=== PATIENT | male | born 1965 | race American Indian/Alaskan Native ===

== ENCOUNTER 2020-08-02 06:38 | Day surgery (SDC) | payer OTHER ==
[2020-08-02] MEDS ORDERED: Sodium Chloride 0.9% 1,000 ML IV SCH (07:00)
[2020-08-02] MEDS ORDERED: Midazolam 1 MG/ML 2 ML SDV ONE (07:22)
[2020-08-02] MEDS ORDERED: fentaNYL 100 MCG/2 ML SDV ONE (07:22)
[2020-08-02] MEDS ORDERED: Propofol 200 MG/20 ML SDV ONE (07:22)
--- NOTE | 2020-08-02 14:10 | OR ---
DATE OF PROCEDURE: 08/02/2020 SURGEON: Abdias Rehman MD PROCEDURE: Colonoscopy. FINDINGS: Mild diverticulosis without evidence of diverticulitis. COMPLICATIONS: None. ASSISTED LIVING CARE MANAGER: None. ANESTHESIA: MAC. PREOPERATIVE DIAGNOSIS: Screening colonoscopy. POSTOPERATIVE DIAGNOSIS: Screening colonoscopy. RISKS: Risks, benefits, alternatives, and limitations including but not limited to infection, bleeding, perforation, false positives, or false negatives were explained to the patient who wished to proceed. PROCEDURE IN DETAIL: The patient was placed in left lateral decubitus position. Digital rectal exam was performed without abnormality. Scope was introduced and advanced atraumatically to ileocecal valve. A photo was taken. The scope was brought back to the ascending, transverse, and descending colon and retroflexed. Diverticulosis was noted without evidence of diverticulitis or bleeding. This would be described as mild and mostly limited to sigmoid colon. No polyps, no colitis, no old or new blood, and no abnormalities on retroflexion. Prep was acceptable, approximately 90% of luminal surface could be seen, and greater than 8 minutes were spent removing the scope. The patient tolerated the procedure well. Abdias Rehman MD /[id number]
== END 2020-08-02 09:10 | disposition home or self-care (01) ==
LOC: JP.SDS 06:38
PROVIDERS: ATTEND Surgery
DX: Z12.11 Encounter for screening for malignant neoplasm of colon (principal); K57.30 Diverticulosis of large intestine without perforation or abscess without bleeding; E11.9 Type 2 diabetes mellitus without complications; Z88.6 Allergy status to analgesic agent; Z88.8 Allergy status to other drugs, medicaments and biological substances
CPT/HCPCS: J2250; J2704; J3010; J7030